=== PATIENT | male | born 1980 | race Caucasian/White ===

== ENCOUNTER 2020-08-26 08:48 | Emergency (ER) | payer MEDICAID ==
[~2020-08-26] VITALS: Ht 170.2 cm; Wt 88.5 kg
[2020-08-26 08:59] VITALS: Ht 170.2 cm; Wt 88.5 kg
[2020-08-26 11:28] VITALS: BP 128/78
== END 2020-08-26 11:28 | disposition home or self-care (01) ==
LOC: ED 08:48
DX: M54.41 Lumbago with sciatica, right side (principal)
CPT/HCPCS: J1885